=== PATIENT | male | born 1985 | race Caucasian/White ===

== ENCOUNTER 2016-07-27 18:34 | Emergency (ER) | payer OTHER ==
[2016-07-27 18:39] VITALS: BP 142/86; PULSE 119; RESP 18; TEMP 98
--- NOTE | 2016-07-27 19:01 | ED ---
General Adult HPI - General Chief complaint: Overdose Stated complaint: overdose Time Seen by Provider: 07/27/16 18:52 Source: patient, EMS, RN notes reviewed, old records reviewed Mode of arrival: EMS Limitations: no limitations - History of Present Illness Initial comments: This is a 31-year-old male the ER for evaluation of heroin overdose. Patient has history of drug abuse, history of psychiatric disease, history of polysubstance abuse. Patient currently states he did no other drugs besides heroin, PD and EMS were called patient's house regarding heroin overdose, he was reserved reversed with Narcan, and patient currently has remained awake and alert since the incident. Patient really has no complaints - Related Data Home Medications Medication Instructions Recorded Confirmed Ibuprofen [Motrin] 800 mg PO TID PRN 10/19/15 10/20/15 SUMAtriptan SUCCINATE [Imitrex] 100 mg PO BID PRN 10/19/15 10/20/15 Previous Rx's Medication Instructions Recorded Gabapentin [Neurontin] 100 mg PO HS #30 cap 10/22/15 Naltrexone HCl [Revia] 50 mg PO DAILY #30 tab 10/22/15 Nicotine Polacrilex [Nicorette] 2 mg BUCCAL Q2HR PRN #60 gum 10/22/15 Sertraline [Zoloft] 50 mg PO DAILY #30 tab 10/22/15 traZODone HCL [Desyrel] 100 mg PO HS #30 tab 10/22/15 Allergies Allergy/AdvReac Type Severity Reaction Status Date / Time No Known Allergies Allergy Verified 07/27/16 18:39 Review of Systems ROS Statement: Those systems with pertinent positive or pertinent negative responses have been documented in the HPI. ROS Other: All systems not noted in ROS Statement are negative. Past Medical History Past Medical History: No Reported History History of Any Multi-Drug Resistant Organisms: None Reported Past Surgical History: Orthopedic Surgery Additional Past Surgical History / Comment(s): r wrist surgery 2002 Past Anesthesia/Blood Transfusion Reactions: No Reported Reaction Past Psychological History: No Psychological Hx Reported Smoking Status: Current every day smoker Past Alcohol Use History: None Reported Past Drug Use History: Heroin, IV Drug Use, Marijuana General Exam Limitations: no limitations General appearance: alert, in no apparent distress Head exam: Present: atraumatic, normocephalic, normal inspection Eye exam: Present: normal appearance, PERRL, EOMI. Absent: scleral icterus, conjunctival injection, periorbital swelling ENT exam: Present: normal exam, mucous membranes moist Neck exam: Present: normal inspection. Absent: tenderness, meningismus, lymphadenopathy Respiratory exam: Present: normal lung sounds bilaterally. Absent: respiratory distress, wheezes, rales, rhonchi, stridor Cardiovascular Exam: Present: regular rate, normal rhythm, normal heart sounds. Absent: systolic murmur, diastolic murmur, rubs, gallop, clicks GI/Abdominal exam: Present: soft, normal bowel sounds. Absent: distended, tenderness, guarding, rebound, rigid Extremities exam: Present: normal inspection, full ROM, normal capillary refill. Absent: tenderness, pedal edema, joint swelling, calf tenderness Back exam: Present: normal inspection Neurological exam: Present: alert, oriented X3, CN II-XII intact Psychiatric exam: Present: normal affect, normal mood Skin exam: Present: warm, dry, intact, normal color. Absent: rash Course Vital Signs 07/27/16 18:37 Temperature 98.0 F Pulse Rate 119 H Respiratory 18 Rate Blood Pressure 142/86 O2 Sat by Pulse 100 Oximetry Medical Decision Making - Medical Decision Making 31 male the ER for evaluation. Patient's to the ER for reevaluation regarding opiate overdose, patient is awake and alert, denies other coingestions, not homicidal or suicidal, patient can be discharged home Disposition Clinical Impression: Drug overdose, Poisoning by opiate or related narcotic Disposition: HOME SELF-CARE Condition: Good Instructions: Opioid Overdose (ED) Referrals: None,Stated [Primary Care Provider] - 1-2 days
== END 2016-07-27 19:06 | disposition home or self-care (01) ==
LOC: EC 18:34
DX: T40.601A Poisoning by unspecified narcotics, accidental (unintentional), initial encounter (principal); F17.200 Nicotine dependence, unspecified, uncomplicated
CPT/HCPCS: 99284